=== PATIENT | male | born 1945 | race Caucasian/White ===

== ENCOUNTER 2023-07-06 13:18 | Emergency (ER) | payer OTHER, SELFPAY ==
[2023-07-06 13:18] VITALS: BMI 21.1
[2023-07-06 13:20] VITALS: BP 127/59
[2023-07-06 13:41] VITALS: BP 133/61
--- NOTE | 2023-07-06 15:52 | ED.GENMED ---
History of Present Illness
General
Chief Complaint: Allergic Reaction
Source: patient
Exam Limitations: none
Time Seen by Provider: 07/06/23 14:45
Nursing documentation reviewed up to this point in time: agreed with
Travel History
Have you had any contact with someone who has COVID-19?: No
Do you have any symptoms of coronavirus? Fever > 100 degrees, chills, cough, shortness of breath, sore throat, loss of taste or smell, muscle aches, or headache?: No
History of Present Illness
History of Present Illness:
Patient presents to ED secondary to sudden onset of itchy rash noted over his hip, abdomen, scalp, and arms, along with left upper lip last night denies fever or chills. Denies headache. Denies dizziness. Patient has not taking any medications,
including Benadryl. However, patient states that his symptoms have improved, including decreased swelling of his lip and less itching sensation. Denies new medications or diet. Denies new soap or detergents. Denies chest pain or shortness of
breath. Denies difficulty with swallowing. Denies difficulty with speech. Denies nausea or vomiting. Denies previous history of similar symptoms. Patient wants to know if he can receive 'shot' to help him with his symptoms.
Past History
Past History
ED Past Medical History: HTN and Hypercholesterolemia
ED Past Surgical History: None
Social History
Tobacco: Smoker (stopped one week ago)
Alcohol: None
Personal:
Living: with family
Review of Systems
Review of Systems
Allergies reviewed?: Yes
All Other Systems: ROS reviewed and negative except as documented in HPI and ROS
Constitutional: Reports no symptoms
EENT: Reports no symptoms
Respiratory: Reports no symptoms; Denies trouble breathing
Cardiac: Reports no symptoms; Denies chest pain or palpitations
ABD/GI: Reports no symptoms; Denies abdominal pain, nausea or vomiting
Musculoskeletal: Reports no symptoms
Skin: Reports itching and rash
Neurological: Reports no symptoms
Phy Exam
Physical Exam
Physical Exam:
Physical Exam
General: no apparent distress, not acutely ill. afebrile
Head: nc/at. eomi
Neck: supple. normal range of motion.
Heart: s1/s2 regular rate and rhythm, no murmur. equal radial pulses.
Lungs: no acute respiratory distress. clear bilaterally
Abdomen: normal bowel sounds. not tender.
Neuro: alert and oriented. no focal neurological deficits
Skin: hives noted over left flank/abdomen/scalp. mild left upper lip swelling noted.
Psychiatric: well kept. interactive and cooperative
Extremities: no edema. no calf tenderness.
Course
Orders/Labs/Results
Orders:
Orders
07/06/23 15:51
Dexamethasone Pf [Decadron] 10 mg PO NOW STA
Vital Signs
Initial and Last Documented VS:
Initial Vital Signs
Temp Pulse Resp BP Pulse Ox
98.2 F 128 18 127/59 98
07/06/23 13:20 07/06/23 13:20 07/06/23 13:20 07/06/23 13:20 07/06/23 13:20
Last Documented Vital Signs
Temp Pulse Resp BP Pulse Ox
98.2 F 99 20 133/61 99
07/06/23 13:20 07/06/23 13:41 07/06/23 13:41 07/06/23 13:41 07/06/23 13:41
MDM/Problems Addressed
MDM/Problems Addressed:
Patient with an acute allergic reaction, which now appears to be improving spontaneously since onset yesterday. Patient will be given 1 dose of Decadron prior to discharge. Advised Benadryl use as an outpatient, with any continual itching
sensation. In addition, recommended PCP follow-up as an outpatient, to discuss and further delineate potential etiology behind his allergic reaction.
*Critical Care Note
Total Time (30-74mins, 75-104mins- exclusive of procedures): Not Applicable
ED Attending Note
-
Portions of this chart may have been created with voice recognition software.� Occasional wrong word or��sound alike� substitutions may have occurred due to the inherent limitations of voice recognition software.
Discharge Plan
Departure
Patient Disposition: Home (Routine Discharge)
Date of Disposition: 07/06/23
Time of Disposition: 15:52
Patient with high blood pressure during this ER visit?: Yes
Covid-19: Not Applicable
Discharge Problem:
Allergic reaction
Instructions: Allergic Reaction ED
Prescriptions:
No Action
atorvastatin 40 MG tablet
40 mg PO DAILY
alfuzosin 10 MG tablet extended release 24 hr
10 mg PO DAILY
aspirin 81 MG tablet,delayed release (DR/EC)
81 mg PO DAILY
oxycodone-acetaminophen [Percocet] 1 EACH tablet
1 ea PO Q4H PRN (Reason: pain)
cholecalciferol (vitamin D3) [Vitamin D3] 50 MCG capsule
50 mcg PO DAILY
fluticasone propion-salmeterol 1 DISK blister with device
1 puff inhalation DAILYPRN PRN (Reason: when pt feels it is necessary)
Spiriva with HandiHaler 18 mcg Capsule, W/Inhalation Device
1 cap INHALATION DAILY
valsartan-hydrochlorothiazide 320-12.5 mg Tablet
1 tab PO DAILY
pantoprazole 40 mg Tablet,Delayed Release (Dr/Ec)
40 mg PO DAILY
tadalafil [Cialis] 5 mg Tablet
5 mg
Zenpep 15,000-47,000 -63,000 unit Capsule,Delayed Release(Dr/Ec)
PO
Uribel 118-10-40.8-36 mg capsule
1 tab PO QID PRN (Reason: urinary tract irritation) Qty: 40 1RF
Referrals:
Meme Ramirez, DO [Family Provider] -
Activity Restrictions/Additional Instructions:
As discussed, please follow-up with your primary care physician for further evaluation and treatment. In addition, recommend taking [id number] Benadryl for itching sensation.
Interventions
Interventions:
*Risk Screen - Suicide Last Done: 07/06/23 13:27
*General Assessment Last Done: 07/06/23 13:27
*Neglect/Abuse Screening Last Done: 07/06/23 13:27
ED- Fall Risk Assessment Last Done: 07/06/23 13:27
*ED COVID-19 Vaccine History Last Done: 07/06/23 13:20
*Nursing Disposition Last Done: 07/06/23 16:31
ED- Pulmonary Assessment Last Done: 07/06/23 13:27
ED-Skin Assessment Last Done: 07/06/23 13:27
Discharge Date and Time
Discharge Date/Time: 07/06/23 16:32
[2023-07-06] MEDS: DECADRON 10 MG PO (16:04)
== END 2023-07-06 16:32 | disposition home or self-care (01) ==
LOC: EMR 13:18
PROVIDERS: EMERGENCY PHYSICIAN Emergency Medicine; FAMILY PHYSICIAN Family Medicine
DX: T78.40XA Allergy, unspecified, initial encounter (principal); X58.XXXA Exposure to other specified factors, initial encounter; I10 Essential (primary) hypertension; E78.00 Pure hypercholesterolemia, unspecified; F17.200 Nicotine dependence, unspecified, uncomplicated
CPT/HCPCS: 99282

== ENCOUNTER 2023-07-08 08:00 | Emergency (ER) | payer OTHER, SELFPAY ==
[2023-07-08 08:03] VITALS: BP 152/73
--- NOTE | 2023-07-08 08:14 | ED.GENMED ---
History of Present Illness
General
Chief Complaint: Esophageal Problem
Time Seen by Provider: 07/08/23 08:14
Travel History
Have you had any contact with someone who has COVID-19?: No
Do you have any symptoms of coronavirus? Fever > 100 degrees, chills, cough, shortness of breath, sore throat, loss of taste or smell, muscle aches, or headache?: No
History of Present Illness
History of Present Illness:
HPI: Patient was seen here 2 days ago with generalized pruritus. He was given a shot of Decadron and was recommended to take Benadryl. He took Benadryl orally yesterday and since that time has a sensation of the pill is stuck. However since that
time he has been clearing his secretions and has been able to eat food. He is concerned that the 'Benadryl that is stuck is causing more swelling'.
EXAM:
GENERAL: Well appearing in no distress
HEENT: Moist oral mucosa, the patient is deaf, moderate periorbital edema and erythema
CARDIOVASCULAR: No murmurs, normal heart rate, regular rhythm, No chest wall tenderness
PULMONARY: No respiratory distress, breath sounds are clear and equal
ABDOMEN: Soft with no peritoneal signs, no tenderness
NEUROLOGIC: Excellent strength all extremities, no coordination deficits
PSYCHIATRIC: Appropriate mental status, normal insight and judgement
EXTREMITIES: Nontender, no edema, moves all extremities equally
SKIN: No rash, no lesions
TIME OF INITIAL ENCOUNTER: 8:25 AM
NUMBER AND COMPLEXITY OF PROBLEMS ADDRESSED AT THE ENCOUNTER
� Chronic conditions affecting care: High blood pressure, hyperlipidemia, anxiety
� Acute Exacerbation and/or Progression of Chronic Illness: This is an acute problem
� Differential Diagnosis includes: Esophageal obstruction unlikely as patient was able to drink water without difficulty, pill esophagitis
AMOUNT AND/OR COMPLEXITY OF DATA TO BE REVIEWED AND ANALYZED
� I performed an independent evaluation of and my interpretation is:
EKG:
CT:
X-rays:
Laboratory Studies: Mild leukocytosis noted�patient did recently receive steroids
Other: Barium esophagram results reviewed by radiologist�I personally reviewed images
� Review of other/old records: I reviewed the notes from 2 days ago�at that time he came in because of pruritic rash; he was given a dose of Decadron
� Clinical information was obtained by an independent historian: at bedside
� Prescriptions/Medications Considered but not given:
� Further testing considered but not performed:
RISK OF COMPLICATIONS AND/OR MORBIDITY OR MORTALITY OF PATIENT MANAGEMENT
� Social determinants of health affecting care: Lives at home, is deaf
� Discussion with other providers: Discussed with GI, Dr. Rodriguez who recommends considering barium esophagram
� Escalation of care including admission/observation vs risk of discharge considered: Patient was given IV Pepcid/Protonix, glucagon and I discussed with GI. Esophagram unremarkable. Dr. Rodriguez also recommended lidocaine which
we have given however the patient denies any significant pain.
Past History
Past History
ED Past Medical History: HTN and Hypercholesterolemia
ED Past Surgical History: None
Social History
Tobacco: Smoker (stopped one week ago)
Alcohol: None
Personal:
Living: with family
Phy Exam
Physical Exam
Physical Exam:
See HPI
Course
Orders/Labs/Results
Orders:
Orders
07/08/23 08:24
Diphenhydramine [Benadryl] 25 mg IV NOW STA
Famotidine [Pepcid] 20 mg IV NOW STA
Glucagon [GlucaGen] 1 mg IV NOW STA
MethylPREDNISolone PF [Solu-Medrol Pf] 125 mg IV NOW STA
Ondansetron Injectable [Zofran] 4 mg IV NOW STA
07/08/23 08:27
Pantoprazole [Protonix IV] 40 mg IV NOW STA
07/08/23 08:31
Complete Blood Count/No Diff Urgent
Comprehensive Metabolic Panel Urgent
07/08/23 08:40
RF Esophagus-Single Contrast Urgent
Comment:
Reason For Exam: pill 'stuck in esophagus'; GI recs barium esophogr
07/08/23 11:55
Viscous Lidocaine 2% [Xylocaine Viscous Cup] 10 ml PO NOW STA
Abnormal Lab Results
07/08/23
08:31
WBC 11.0 H 10^3/uL
(4.8-10.8)
RBC 4.33 L 10^6/uL
(4.70-6.10)
MCH 31.9 H pg
(27.0-31.0)
BUN 24 H mg/dl
(9-20)
Glucose 124 H mg/dl
(70-99)
Total Protein 6.2 L g/dl
(6.3-8.2)
07/08/23 08:31
07/08/23 08:31
Vital Signs
Initial and Last Documented VS:
Initial Vital Signs
Temp Pulse Resp BP Pulse Ox
98 F 94 16 152/73 96
07/08/23 08:03 07/08/23 08:03 07/08/23 08:03 07/08/23 08:03 07/08/23 08:03
Last Documented Vital Signs
Temp Pulse Resp BP Pulse Ox
98 F 85 16 151/72 96
07/08/23 08:03 07/08/23 12:11 07/08/23 12:11 07/08/23 12:11 07/08/23 12:11
*Critical Care Note
Total Time (30-74mins, 75-104mins- exclusive of procedures): Not Applicable
ED Attending Note
-
Portions of this chart may have been created with voice recognition software.� Occasional wrong word or��sound alike� substitutions may have occurred due to the inherent limitations of voice recognition software.
Discharge Plan
Departure
Patient Disposition: Home (Routine Discharge)
Date of Disposition: 07/08/23
Time of Disposition: 11:54
Patient with high blood pressure during this ER visit?: Yes
Discharge Problem:
Pill esophagitis
Instructions: Esophagitis
Prescriptions:
New
lidocaine HCl [Lidocaine Viscous] 2 % solution
1 applic PO TID PRN (Reason: Pain) Qty: 100 0RF
Rx Instructions:
swallow as need for esophageal pain 3x per day
No Action
atorvastatin 40 MG tablet
40 mg PO DAILY
alfuzosin 10 MG tablet extended release 24 hr
10 mg PO DAILY
aspirin 81 MG tablet,delayed release (DR/EC)
81 mg PO DAILY
oxycodone-acetaminophen [Percocet] 1 EACH tablet
1 ea PO Q4H PRN (Reason: pain)
cholecalciferol (vitamin D3) [Vitamin D3] 50 MCG capsule
50 mcg PO DAILY
fluticasone propion-salmeterol 1 DISK blister with device
1 puff inhalation DAILYPRN PRN (Reason: when pt feels it is necessary)
Spiriva with HandiHaler 18 mcg Capsule, W/Inhalation Device
1 cap INHALATION DAILY
valsartan-hydrochlorothiazide 320-12.5 mg Tablet
1 tab PO DAILY
pantoprazole 40 mg Tablet,Delayed Release (Dr/Ec)
40 mg PO DAILY
tadalafil [Cialis] 5 mg Tablet
5 mg
Zenpep 15,000-47,000 -63,000 unit Capsule,Delayed Release(Dr/Ec)
PO
Uribel 118-10-40.8-36 mg capsule
1 tab PO QID PRN (Reason: urinary tract irritation) Qty: 40 1RF
Referrals:
Valeria Wilson MD [Active] - Follow up in 10 days
Meme Ramirez DO [Family Provider] -
Activity Restrictions/Additional Instructions:
I notified Dr. Zurita says that you have an appointment in the beginning of July. Follow-up with them. I also sent a prescription for viscous lidocaine that you can use 3 times per day as needed to help with the discomfort�this only numbs
the area. Return here if worse.
Interventions
Interventions:
*Risk Screen - Suicide Last Done: 07/08/23 08:03
*General Assessment Last Done: 07/08/23 08:03
*Neglect/Abuse Screening Last Done: 07/08/23 08:03
*ED COVID-19 Vaccine History Last Done: 07/08/23 08:48
*Nursing Disposition Last Done: 07/08/23 12:11
LS-Ictwcp-Uhdfsmysth Assessment Last Done: 07/08/23 08:48
ED-EENT Assessment Last Done: 07/08/23 08:48
Discharge Date and Time
Discharge Date/Time: 07/08/23 12:12
[2023-07-08] MEDS: ZOFRAN 4 MG IV (08:35)
[2023-07-08] MEDS: PEPCID 20 MG IV (08:36)
[2023-07-08] MEDS: BENADRYL 25 MG IV (08:37)
[2023-07-08] MEDS: PROTONIX IV 40 MG IV (08:39)
[2023-07-08] MEDS: GlucaGen 1 MG IV (08:42)
[2023-07-08] MEDS: SOLU-MEDROL PF 125 MG IV (08:42)
[2023-07-08 08:47] VITALS: BMI 20.2
[2023-07-08 09:00] LABS: Hematocrit 39.3 % (39.0-52.0); Hemoglobin 13.8 g/dL (13.0-18.0); Mean Corp Hgb Conc. 35.1 g/dL (33.0-37.0); Mean Corpuscular Hgb 31.9 pg (27.0-31.0); Mean Corpuscular Volume 90.8 fL (80.0-94.0); Mean Platelet Volume 9.7 fL (7.4-10.4); Platelet Count 259 10^3/uL (130-400); Red Blood Cell Count 4.33 10^6/uL (4.70-6.10); Red Cell Dist. Width 13.5 % (11.5-14.5)
[2023-07-08 09:13] LABS: ALT (SGPT) 18 U/L (0-50); AST (SGOT) 26 U/L (17-59); Albumin 3.9 g/dl (3.5-5.0); Alkaline Phosphatase 78 U/L (38-126); Blood Urea Nitrogen 24 mg/dl (9-20); Calcium 9.1 mg/dl (8.4-10.2); Carbon Dioxide 29 mmol/L (22-30); Chloride 103 mmol/L (98-107); Estimated Creatinine Clearance 63 ml/min; Glucose 124 mg/dl (70-99); Potassium 3.9 mmol/L (3.5-5.1); Sodium 137 mmol/L (135-145); Total Bilirubin 1.1 mg/dl (0.2-1.3); Total Protein 6.2 g/dl (6.3-8.2); eGFR > 60.00
[2023-07-08] MEDS: XYLOCAINE VISCOUS CUP 10 ML PO (12:02)
[2023-07-08 12:11] VITALS: BP 151/72
== END 2023-07-08 12:12 | disposition home or self-care (01) ==
LOC: EMR 08:00
PROVIDERS: EMERGENCY PHYSICIAN Emergency Medicine; FAMILY PHYSICIAN Family Medicine
DX: K20.80 Other esophagitis without bleeding (principal); F17.200 Nicotine dependence, unspecified, uncomplicated; I10 Essential (primary) hypertension; E78.5 Hyperlipidemia, unspecified; F41.9 Anxiety disorder, unspecified; D72.828 Other elevated white blood cell count
CPT/HCPCS: 99284; 96374; 96375 ×5; 74220; 80053; 85027; J1610

== ENCOUNTER → 2023-09-09 08:01 | Outpatient (REF) | payer OTHER, SELFPAY | LOC: RCS 08:01 | PROVIDERS: ATTENDING PHYSICIAN Physician Assistant Medical; FAMILY PHYSICIAN Family Medicine | DX: I48.91 Unspecified atrial fibrillation (principal) | CPT/HCPCS: 93306 ==

== ENCOUNTER 2023-09-13 20:04 | Emergency (ER) | payer OTHER, SELFPAY ==
[2023-09-13 20:06] VITALS: BP 117/70
--- NOTE | 2023-09-13 22:52 | ED.GENMED ---
History of Present Illness
General
Chief Complaint: Skin Problem
Source: patient
Exam Limitations: none
Time Seen by Provider: 09/13/23 22:46
Nursing documentation reviewed up to this point in time: agreed with
Travel History
Have you had any contact with someone who has COVID-19?: No
Do you have any symptoms of coronavirus? Fever > 100 degrees, chills, cough, shortness of breath, sore throat, loss of taste or smell, muscle aches, or headache?: No
History of Present Illness
History of Present Illness:
78-year-old male tenderness in his right anterior ruiz at the site of Mohs surgery several years ago no trauma started today had a swollen area which improved with elevating his legs
No chest pain no shortness of breath
No fever or chills
Past History
Past History
ED Past Medical History: HTN and Hypercholesterolemia
ED Past Surgical History: None
Social History
Tobacco: Smoker (stopped one week ago)
Alcohol: None
Personal:
Living: with family
Employment: Retired
Review of Systems
Review of Systems
All Other Systems: Not applicable
Constitutional: Denies fever or fatigue
Respiratory: Reports no symptoms
Cardiac: Reports no symptoms
ABD/GI: Reports no symptoms
Musculoskeletal: Reports back pain (Chronic back pain takes oxycodone); Denies edema
Skin: Reports other (Swelling and some tenderness in his right anterior ruiz)
Phy Exam
Physical Exam
Physical Exam:
Physical Exam
General: no apparent distress, not acutely ill
Neck: No jaundice
Heart: s1/s2 regular rate and rhythm, no murmur. equal radial pulses.
Lungs: no acute respiratory distress. clear bilaterally
Neuro: alert and oriented. no focal neurological deficits
Skin: no rash
Psychiatric: well kept. interactive and cooperative
Extremities: Right anterior ruiz old appearing scar no appreciable tenderness or mass no calf pain no cords
Course
Orders/Labs/Results
Orders:
Orders
09/13/23 22:52
Tib/Fib, Right 2 View [CR Leg Tibia/fibula Right 2 Vw] Urgent
Comment:
Reason For Exam: pain
Vital Signs
Initial and Last Documented VS:
Initial Vital Signs
Temp Pulse Resp BP Pulse Ox
98.2 F 74 22 117/70 95
09/13/23 20:06 09/13/23 20:06 09/13/23 20:06 09/13/23 20:06 09/13/23 20:06
Last Documented Vital Signs
Temp Pulse Resp BP Pulse Ox
98.2 F 74 22 117/70 95
09/13/23 20:06 09/13/23 20:06 09/13/23 20:06 09/13/23 20:06 09/13/23 20:06
MDM/Problems Addressed
Differential Diagnosis Includes:
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
MDM/Problems Addressed:
Anterior leg swelling
Chronic conditions affecting care:
Mohs surgery
Chronic conditions affecting care: DM
Acute Exacerbation and/or Progression of Chronic Illness: DM
*Radiology
Radiology exam reviewed: preliminary read by ED provider
*Pulse Oximetry
Patient hypoxic: no
*Critical Care Note
Total Time (30-74mins, 75-104mins- exclusive of procedures): Not Applicable
Update Note
Update Note:
Update x-ray noted no obvious abnormality
ED Attending Note
-
Portions of this chart may have been created with voice recognition software.� Occasional wrong word or��sound alike� substitutions may have occurred due to the inherent limitations of voice recognition software.
Discharge Plan
Departure
Patient Disposition: Home (Routine Discharge)
Date of Disposition: 09/13/23
Time of Disposition: 23:49
Patient with high blood pressure during this ER visit?: No
Condition: Good
Discharge Problem:
Acute leg pain
Prescriptions:
No Action
atorvastatin 40 MG tablet
40 mg PO DAILY
alfuzosin 10 MG tablet extended release 24 hr
10 mg PO DAILY
aspirin 81 MG tablet,delayed release (DR/EC)
81 mg PO DAILY
oxycodone-acetaminophen [Percocet] 1 EACH tablet
1 ea PO Q4H PRN (Reason: pain)
cholecalciferol (vitamin D3) [Vitamin D3] 50 MCG capsule
50 mcg PO DAILY
fluticasone propion-salmeterol 1 DISK blister with device
1 puff inhalation DAILYPRN PRN (Reason: when pt feels it is necessary)
Spiriva with HandiHaler 18 mcg Capsule, W/Inhalation Device
1 cap INHALATION DAILY
valsartan-hydrochlorothiazide 320-12.5 mg Tablet
1 tab PO DAILY
pantoprazole 40 mg Tablet,Delayed Release (Dr/Ec)
40 mg PO DAILY
tadalafil [Cialis] 5 mg Tablet
5 mg
Zenpep 15,000-47,000 -63,000 unit Capsule,Delayed Release(Dr/Ec)
PO
Uribel 118-10-40.8-36 mg capsule
1 tab PO QID PRN (Reason: urinary tract irritation) Qty: 40 1RF
lidocaine HCl [Lidocaine Viscous] 2 % solution
1 applic PO TID PRN (Reason: Pain) Qty: 100 0RF
Rx Instructions:
swallow as need for esophageal pain 3x per day
Referrals:
Meme Ramirez, [Family Provider] - Next open appointment
Activity Restrictions/Additional Instructions:
Elevate your leg
Tylenol as needed for pain
Return to the ER for worsening symptoms, call your family doctor tomorrow to discuss your symptoms
Interventions
Interventions:
*Risk Screen - Suicide Last Done: 09/13/23 20:06
*Neglect/Abuse Screening Last Done: 09/13/23 20:06
Discharge Date and Time
Print Language: MALTESE
[2023-09-14] MEDS: TYLENOL 650 MG PO (00:13)
[2023-09-14 00:17] VITALS: BP 140/70
[2023-09-14] MEDS: KEFLEX 500 MG PO (00:20)
[2023-09-14 00:25] VITALS: BP 140/70
== END 2023-09-14 00:27 | disposition home or self-care (01) ==
LOC: EMR 20:04
PROVIDERS: EMERGENCY PHYSICIAN Emergency Medicine; FAMILY PHYSICIAN Family Medicine
DX: M79.606 Pain in leg, unspecified (principal); I10 Essential (primary) hypertension; E78.00 Pure hypercholesterolemia, unspecified; E11.9 Type 2 diabetes mellitus without complications; F17.200 Nicotine dependence, unspecified, uncomplicated
CPT/HCPCS: 99283; 73590

== ENCOUNTER → 2023-12-12 12:39 | Outpatient (REF) | payer OTHER, SELFPAY | LOC: RAD 12:39 | PROVIDERS: ATTENDING PHYSICIAN Surgery Vascular Surgery | DX: I65.22 Occlusion and stenosis of left carotid artery (principal); I65.21 Occlusion and stenosis of right carotid artery | CPT/HCPCS: 93880 ==

== ENCOUNTER → 2023-12-26 12:47 | Outpatient (REF) | payer OTHER, SELFPAY | LOC: MRI 3T 12:47 | PROVIDERS: ATTENDING PHYSICIAN Physician Assistant | DX: K86.2 Cyst of pancreas (principal) | CPT/HCPCS: 74183; A9575 ==

== ENCOUNTER → 2024-01-26 10:44 | Outpatient (REF) | payer OTHER, SELFPAY | LOC: HWRAD 10:44 | PROVIDERS: ATTENDING PHYSICIAN Specialist; FAMILY PHYSICIAN Family Medicine | DX: N43.3 Hydrocele, unspecified (principal) | CPT/HCPCS: 76870; 93976 ==

== ENCOUNTER 2024-03-14 09:37 | Emergency (ER) | payer OTHER, SELFPAY ==
[2024-03-14 09:40] VITALS: BP 162/78
--- NOTE | 2024-03-14 10:47 | ED.GENMED ---
History of Present Illness
General
Chief Complaint: Abdominal Pain
Source: patient
Exam Limitations: none
Time Seen by Provider: 03/14/24 10:45
History of Present Illness
History of Present Illness:
This is a 78-year-old male with past medical history of hypertension, hyperlipidemia, pancreatic cyst presents to the emergency department today with concerns of right lower quadrant abdominal pain. Patient states that this started approximately 3
days ago. He has never had pain like this before. Patient notes that when it started it was more severe and has been getting better however now he notes the pain is worse with any movement. Denies any nausea or vomiting. Denies any fevers or
chills. Patient has had past surgical history of hernia repair in the past but otherwise no intra-abdominal surgeries. Patient has been on no recent antibiotics. PCP wanted him to come and potentially get CT scan done. He denies any new
medications. Patient notes that Tylenol at home did help with the pain. He denies any lightheadedness or dizziness. He denies any chest pain or shortness of breath.
Past History
Past History
ED Past Medical History: HTN and Hypercholesterolemia
ED Past Surgical History: None
Social History
Tobacco: Smoker (stopped one week ago)
Alcohol: None
Personal:
Living: with family
Employment: Retired
Review of Systems
Review of Systems
All Other Systems: ROS reviewed and negative except as documented in HPI and ROS
Phy Exam
Physical Exam
Physical Exam:
General: Patient is well appearing and in no acute distress; non-toxic
Skin: Warm and dry, no rashes or lesions
Head: Normocephalic, atraumatic
Eyes: Sclera non-icteric. EOMs intact. PERRLA.
Cardiac: Regular rate and rhythm, no murmurs
Peripheral Vascular: No lower extremity swelling or edema
Pulm: Normal respiratory effort, no wheezes, rales, rhonchi
Abdomen: No abdominal tenderness to palpation, no palpable masses
Neuro: CN II-XII intact, no focal neurologic deficits.
Psychiatric: Appropriate mood and affect.
Course
Orders/Labs/Results
Orders:
Orders
03/14/24 10:50
IV Insert/Care/Rem.- Treatment PRN
03/14/24 11:04
Acetaminophen [Tylenol] 1,000 mg PO NOW STA
Iohexol [Omnipaque] See Protocol PO NOW STA
03/14/24 11:05
CT Abd/pel W Iv And Oral Contr Urgent
Comment:
Reason For Exam: RLQ pain
03/14/24 11:34
Complete Blood Count/With Diff Urgent
Comprehensive Metabolic Panel Urgent
Lipase Urgent
Abnormal Lab Results
03/14/24
11:34
RBC 4.69 L 10^6/uL
(4.70-6.10)
MCV 96.2 H fL
(80.0-94.0)
MCH 31.1 H pg
(27.0-31.0)
MCHC 32.4 L g/dL
(33.0-37.0)
Carbon Dioxide 31 H mmol/L
(22-30)
Glucose 111 H mg/dl
(70-99)
03/14/24 11:34
03/14/24 11:34
Vital Signs
Initial and Last Documented VS:
Initial Vital Signs
Temp Pulse Resp BP Pulse Ox
98.4 F 60 18 162/78 95
03/14/24 09:40 03/14/24 09:40 03/14/24 09:40 03/14/24 09:40 03/14/24 09:40
Last Documented Vital Signs
Temp Pulse Resp BP Pulse Ox
98.4 F 60 18 176/90 78
03/14/24 09:40 03/14/24 09:40 03/14/24 09:40 03/14/24 13:00 03/14/24 13:01
MDM/Problems Addressed
Differential Diagnosis Includes:
Differentials include appendicitis, inguinal hernia, groin strain, musculoskeletal sprain/strain, gastroenteritis, colitis, diverticulitis
MDM/Problems Addressed:
This is a 78-year-old male with past medical history of hypertension, hyperlipidemia, pancreatic cyst presents to the emergency department today with concerns of right lower quadrant abdominal pain. He does not have any other associate symptoms.
He does note that he lifted something very heavy a few days ago. On exam he is well-appearing, he is afebrile, he has no abdominal tenderness to palpation on exam. His CBC and CMP are unremarkable. Lipase unremarkable. CT of the abdomen pelvis
shows no evidence of appendicitis. Suspect possible groin strain. Patient stable for discharge. Discussed follow-up with PCP.
Chronic conditions affecting care:
Asthma, hypertension, hyperlipidemia
*Pulse Oximetry
Patient hypoxic: no
*Critical Care Note
Total Time (30-74mins, 75-104mins- exclusive of procedures): Not Applicable
Data Reviewed
Review of Other/Old Records Reveals: Records (Reviewed previous ER physician documentation from 09/13/2023) and Discharge Summary
Source: patient and records
Patient Management
Escalation/DeEscalation of care consider admission/obs:
Admit not indicated, patient stable for discharge
ED Attending Note
-
Portions of this chart may have been created with voice recognition software.� Occasional wrong word or��sound alike� substitutions may have occurred due to the inherent limitations of voice recognition software.
Discharge Plan
Departure
Patient Disposition: Home (Routine Discharge)
Date of Disposition: 03/14/24
Time of Disposition: 14:48
Patient with high blood pressure during this ER visit?: No
Condition: Good
Discharge Problem:
Abdominal pain
Instructions: Abdominal Pain, BLOOD PRESSURE
Prescriptions:
No Action
atorvastatin 40 MG tablet
40 mg PO DAILY
alfuzosin 10 MG tablet extended release 24 hr
10 mg PO DAILY
aspirin 81 MG tablet,delayed release (DR/EC)
81 mg PO DAILY
oxycodone-acetaminophen [Percocet] 1 EACH tablet
1 ea PO Q4H PRN (Reason: pain)
cholecalciferol (vitamin D3) [Vitamin D3] 50 MCG capsule
50 mcg PO DAILY
fluticasone propion-salmeterol 1 DISK blister with device
1 puff inhalation DAILYPRN PRN (Reason: when pt feels it is necessary)
Spiriva with HandiHaler 18 mcg Capsule, W/Inhalation Device
1 cap INHALATION DAILY
valsartan-hydrochlorothiazide 320-12.5 mg Tablet
1 tab PO DAILY
pantoprazole 40 mg Tablet,Delayed Release (Dr/Ec)
40 mg PO DAILY
tadalafil [Cialis] 5 mg Tablet
5 mg
Zenpep 15,000-47,000 -63,000 unit Capsule,Delayed Release(Dr/Ec)
PO
Uribel 118-10-40.8-36 mg capsule
1 tab PO QID PRN (Reason: urinary tract irritation) Qty: 40 1RF
lidocaine HCl [Lidocaine Viscous] 2 % solution
1 applic PO TID PRN (Reason: Pain) Qty: 100 0RF
Rx Instructions:
swallow as need for esophageal pain 3x per day
cephalexin 500 mg capsule
500 mg PO Q6H 7 Days Qty: 28 0RF
Triple Antibiotic 3.5mg-400 unit- 5,000 unit/gram ointment
1 applic topical BID Qty: 9.35 0RF
Referrals:
Meme Ramirez DO [Family Provider] -
Activity Restrictions/Additional Instructions:
Please for emergency department should you experience chest pain, shortness of breath, nausea or vomiting, fevers or chills, lightheadedness, dizziness, dark black tarry stools, vomiting blood, flank pain, blood in the urine, burning with urination,
or any other signs or symptoms concerning to you.
Please follow-up with your PCP in 1 week to ensure the resolution of your symptoms.
Interventions
Interventions:
*Risk Screen - Suicide Last Done: 03/14/24 09:40
*General Assessment Last Done: 03/14/24 09:40
*Neglect/Abuse Screening Last Done: 03/14/24 09:40
ED- Fall Risk Assessment Last Done: 03/14/24 11:27
*ED COVID-19 Vaccine History Last Done: 03/14/24 11:01
*Nursing Disposition Last Done: 03/14/24 15:02
HK-Gnyltz-Hyfepsmsnr Assessment Last Done: 03/14/24 11:00
Discharge Date and Time
Discharge Date/Time: 03/14/24 15:00
Print Language: TURKISH
[2024-03-14 11:27] VITALS: BMI 19.9
[2024-03-14] MEDS: OMNIPAQUE 50 ML PO (11:30)
[2024-03-14 11:57] VITALS: BP 172/68
[2024-03-14 11:58] LABS: % Basophils 0.8 % (0-2); % Eosinophils 0.5 % (0-6); % Immature Granulocytes 0.5 % (0-0.5); % Lymphocytes 22.9 % (20.5-51.1); % Monocytes 6.9 % (1.7-9.3); % Neutrophils 68.4 % (42.2-75.2); Absolute Basophils 0.1 10^3/uL (0-0.2); Absolute Lymphocytes 1.5 10^3/uL (1.2-3.4); Absolute Monocytes 0.5 10^3/uL (0.1-0.6); Absolute Neutrophils 4.5 10^3/uL (1.4-6.5); Hematocrit 45.1 % (39.0-52.0); Hemoglobin 14.6 g/dL (13.0-18.0); Mean Corp Hgb Conc. 32.4 g/dL (33.0-37.0); Mean Corpuscular Hgb 31.1 pg (27.0-31.0); Mean Corpuscular Volume 96.2 fL (80.0-94.0); Mean Platelet Volume 9.6 fL (7.4-10.4); Nucleated Red Blood Cells % 0 % (-); Platelet Count 193 10^3/uL (130-400); Red Blood Cell Count 4.69 10^6/uL (4.70-6.10); Red Cell Dist. Width 13.2 % (11.5-14.5); White Blood Cell Count 6.5 10^3/uL (4.8-10.8)
[2024-03-14 12:00] VITALS: BP 166/73
[2024-03-14 12:12] LABS: ALT (SGPT) 23 U/L (0-50); AST (SGOT) 28 U/L (17-59); Albumin 4.2 g/dl (3.5-5.0); Alkaline Phosphatase 80 U/L (38-126); Blood Urea Nitrogen 16 mg/dl (9-20); Calcium 9.4 mg/dl (8.4-10.2); Carbon Dioxide 31 mmol/L (22-30); Chloride 103 mmol/L (98-107); Estimated Creatinine Clearance 70 ml/min; Glucose 111 mg/dl (70-99); Lipase 27 U/L (23-300); Potassium 4.4 mmol/L (3.5-5.1); Sodium 140 mmol/L (135-145); Total Bilirubin 0.7 mg/dl (0.2-1.3); Total Protein 6.4 g/dl (6.3-8.2); eGFR > 60.00
[2024-03-14 13:00] VITALS: BP 176/90
== END 2024-03-14 15:00 | disposition home or self-care (01) ==
LOC: EMR 09:37
PROVIDERS: Physician Assistant; EMERGENCY PHYSICIAN Emergency Medicine; FAMILY PHYSICIAN Family Medicine
DX: R10.31 Right lower quadrant pain (principal); E78.00 Pure hypercholesterolemia, unspecified; I10 Essential (primary) hypertension; F17.200 Nicotine dependence, unspecified, uncomplicated; J45.909 Unspecified asthma, uncomplicated
CPT/HCPCS: 99284; 74177; 80053; 83690; 85025; Q9967

== ENCOUNTER → 2024-12-18 14:22 | Outpatient (REF) | payer OTHER, SELFPAY | LOC: RAD 14:22 | PROVIDERS: ATTENDING PHYSICIAN Surgery Vascular Surgery | DX: I65.22 Occlusion and stenosis of left carotid artery (principal); I65.21 Occlusion and stenosis of right carotid artery | CPT/HCPCS: 93880 ==